=== PATIENT | male | born 1975 | race Caucasian/White ===

== ENCOUNTER → 2017-08-25 | Outpatient (CLI) | payer OTHER ==
--- NOTE | 2017-08-25 12:26 | DRAGON STRESS TEST REPORT ---
EXERCISE TREADMILL TEST. DATE OF PROCEDURE: August 25, 2017 INDICATION: Patient with erectile dysfunction Coronary risk factors: None identified. Resting EKG: Sinus rhythm, no baseline ST segment changes. Stress EKG: No significant changes noted with with exercise treadmill. Reason for termination: Dyspnea and fatigue. PROCEDURE REPORT: Baseline heart rate: 78 beats per minute with blood pressure of 106/85. Patient had no significant complaints at baseline. Patient was exercised on a standard Mic protocol. Patient exercised for total of 9 minutes and 0 seconds. Exercise was stopped because of fatigue and shortness of breath. Patient denied any chest arm or neck discomfort during the exercise, at peak exercise or in recovery. If automatic blood pressure recorded and if felt not accurate manual blood pressure then were recorded at appropriate intervals. Peak heart rate: 164 bpm, 93 of predicted maximum. Peak blood pressure: 150/95 mmHg. Double product: 24.3 kcal Exercise EKG: Showed some baseline artifact during exercise but no significant ST segment changes noted. CONCLUSIONS: No significant EKG changes noted at achieved double product which was noted to be adequate. Heart rate response noted to be adequate. Blood pressure response mildly suboptimal. Average exercise tolerance. Negative EKG changes with exercise. RECOMMENDATIONS: Aggressive risk factor modification, medical therapy. Consider cardiology consultation if clinically indicated. Sarah Lyons M.D., [employer], Board certified in cardiovascular diseases, Nuclear cardiology, Echocardiography Cardiac CT and cardiac MRI Ph. [phone] Ph. [phone] [facility]
== END ==
LOC: SP 09:03
PROVIDERS: ATTEND Physician Assistant Medical
DX: N52.9 Male erectile dysfunction, unspecified (principal); R53.83 Other fatigue; R06.02 Shortness of breath
CPT/HCPCS: 93017

== ENCOUNTER → 2019-01-01 | Outpatient (CLI) | payer OTHER ==
--- NOTE | 2019-01-01 16:30 | RADIOLOGY REPORT (SQ) ---
EXAM DESCRIPTION: FOOT RIGHT COMPLETE COMPLETED DATE/TIME: 01/01/2019 3:06 pm REASON FOR STUDY: PAIN IN METATARSUS OF RIGHT FOOT M89.8X7 OTHER SPECIFIED DISORDERS OF BONE, ANKLE AND FOOT COMPARISON: None. NUMBER OF VIEWS: Three views. TECHNIQUE: AP, lateral and oblique radiographic images acquired of the right foot. LIMITATIONS: None. FINDINGS: MINERALIZATION: Normal. BONES: No acute fracture or dislocation. No worrisome bone lesions. JOINTS: No effusions. SOFT TISSUES: No soft tissue swelling. No foreign body. OTHER: No other significant finding. IMPRESSION: NEGATIVE STUDY OF THE RIGHT FOOT. NO RADIOGRAPHIC EVIDENCE OF ACUTE INJURY. TECHNICAL DOCUMENTATION: JOB ID: [id number] [employer]- All Rights Reserved Reading location - IP/workstation name: [email or web address]
== END ==
LOC: OD 14:55
PROVIDERS: ATTEND Physician Assistant Medical
DX: M89.8X7 Other specified disorders of bone, ankle and foot (principal)